=== PATIENT | female | born 1945 | race Caucasian/White ===

== ENCOUNTER → 2017-03-03 | Outpatient (CLI) | payer BC ==
[~2017-03-03] MED LIST: ASPIRIN E.C. 8181 M1 PO; CALCIUM 500500 M2 PO; CENTRUM1 TAB PO; FISH OIL CONCEN1 SGL PO
== END ==
LOC: MC.RAD 08:12
DX: Z12.31 Encounter for screening mammogram for malignant neoplasm of breast (principal); Z85.3 Personal history of malignant neoplasm of breast; Z98.890 Other specified postprocedural states

== ENCOUNTER 2017-06-09 15:10 | Emergency (ER) | payer BC ==
[~2017-06-09] VITALS: Ht 172.7 cm; Wt 88.6 kg
[2017-06-09 15:11] VITALS: BP 187/87; TEMP 97.9
[2017-06-09 16:59] LABS: COLLECTION METHOD CLEAN CATCH
[2017-06-09 17:04] LABS: MUCOUS Present /lpf; PH 5 (5-8); SQUAMOUS EPITHELIAL 0-2 /hpf; URINE APPEARANCE Clear; URINE BACTERIA None Seen /hpf; URINE BILIRUBIN Negative (NEGATIVE); URINE BLOOD Negative (NEGATIVE); URINE COLOR Yellow; URINE GLUCOSE 1+ (NEGATIVE); URINE KETONE 1+ (NEGATIVE); URINE LEUKOCYTE ESTERASE Negative (NEGATIVE); URINE PROTEIN(semi-quant) 1+ (NEGATIVE); URINE RBC 0-2 /hpf; URINE UROBILINOGEN Negative (NEGATIVE); URINE WBC 0-2 /hpf
[2017-06-09 17:18] VITALS: PULSE 80
== END 2017-06-09 17:19 | disposition home or self-care (01) ==
LOC: COL.ER 15:10
PROVIDERS: Physician Assistant
DX: S76.011A Strain of muscle, fascia and tendon of right hip, initial encounter (principal); F32.9 Major depressive disorder, single episode, unspecified; Z85.3 Personal history of malignant neoplasm of breast; Z79.82 Long term (current) use of aspirin; X50.1XXA Overexertion from prolonged static or awkward postures, initial encounter

== ENCOUNTER → 2019-05-25 | Outpatient (CLI) | payer BC | LOC: MC.RAD 04-09 13:30 | DX: Z12.31 Encounter for screening mammogram for malignant neoplasm of breast (principal) ==

== ENCOUNTER → 2020-02-14 | Outpatient (CLI) | payer BC | LOC: MC.RAD 14:30 | DX: Z12.31 Encounter for screening mammogram for malignant neoplasm of breast (principal) ==

== ENCOUNTER → 2021-01-26 | Outpatient (CLI) | payer BC | LOC: MC.RAD 09:21 | DX: Z12.31 Encounter for screening mammogram for malignant neoplasm of breast (principal) ==

== ENCOUNTER → 2021-11-15 | Outpatient (CLI) | payer BC | LOC: COL.RAD 11:56 | DX: M47.817 Spondylosis without myelopathy or radiculopathy, lumbosacral region (principal) ==

== ENCOUNTER → 2022-01-15 | Outpatient (CLI) | payer BC | LOC: MC.RAD 10:39 | DX: Z12.31 Encounter for screening mammogram for malignant neoplasm of breast (principal) ==

== ENCOUNTER → 2023-03-03 | Outpatient (CLI) | payer BC | LOC: MC.RAD 08:17 | DX: Z12.31 Encounter for screening mammogram for malignant neoplasm of breast (principal) ==

== ENCOUNTER → 2024-01-26 | Outpatient (CLI) | payer BC | LOC: CANSCHCLI → MC.RAD 08:09 | DX: Z12.31 Encounter for screening mammogram for malignant neoplasm of breast (principal); Z01.419 Encounter for gynecological examination (general) (routine) without abnormal findings ==

== ENCOUNTER 2024-03-15 11:24 | Inpatient (IN) | payer MEDICARE, BC ==
[~2024-03-15] VITALS: Ht 170.2 cm; Wt 93.8 kg
[~2024-03-15 11:24] MED LIST changes: -ASPIRIN E.C. 8181 M1 PO; +ASPIRIN E.C. 8181 MG PO
[2024-03-15 12:14] LABS: BASO # 0.1 K/mm3 (0.0-0.2); BASO % 1.1 % (0.0-2.0); EOS # 0.1 K/mm3 (0.0-0.7); EOS % 1.9 % (0.0-4.0); GRAN # 3.1 K/mm3 (1.4-6.5); GRAN % 54.8 % (42.2-75.2); HEMATOCRIT 42.2 % (37.0-47.0); HEMOGLOBIN 13.8 g/dl (12.5-16.0); LYMPH # 1.8 K/mm3 (1.2-3.4); LYMPH % 31.1 % (20.0-51.0); MEAN CELL VOLUME 96 fl (80.0-100.0); MEAN CORPUSCULAR HEMOGLOBIN 31 pg (27-31); MEAN CORPUSCULAR HGB CONC 33 g/dl (33.0-37.0); MEAN PLATELET VOLUME 10.2 fl (7.4-10.4); MONO # 0.6 K/mm3 (0.1-0.6); MONO % 10.7 % (1.7-9.3); PLATELET COUNT 266 K/mm3 (130-400); RED BLOOD COUNT 4.42 M/mm3 (4.10-5.30); REDCELL DISTRIBUTION WIDTH-CV 13.1 % (11.5-14.5)
[2024-03-15 12:26] LABS: PROTHROMBIN TIME 10.9 SECONDS (9.7-12.8)
[2024-03-15 12:28] LABS: ALBUMIN 3.5 g/dL (3.4-4.8); BILIRUBIN,TOTAL 0.5 mg/dL (0.2-1.2); CALCIUM 9.2 mg/dL (8.4-10.2); CREATININE, serum 0.78 mg/dL (0.57-1.11); POTASSIUM 3.9 mEq/L (3.5-4.5); TOTAL PROTEIN 6.4 g/dl (6.2-8.1)
[2024-03-15 12:58] LABS: COLLECTION METHOD CLEAN CATCH
[2024-03-15 13:05] LABS: URINE APPEARANCE CLEAR (CLEAR/HAZY); URINE BLOOD NEGATIVE (NEGATIVE); URINE COLOR YELLOW (YELLOW); URINE GLUCOSE NEGATIVE (NEGATIVE); URINE KETONE NEGATIVE (NEGATIVE); URINE NITRATE NEGATIVE (NEGATIVE); URINE PROTEIN(semi-quant) NEGATIVE (NEGATIVE); URINE UROBILINOGEN 0.2 E.U/dL (0.2-1.0)
[2024-03-15] MEDS ORDERED: Iohexol 300 - 100 ML VIAL IV ONE (14:33)
[2024-03-15] MEDS ORDERED: NS 100 ML IV SCH (14:34)
[2024-03-15] MEDS ORDERED: LIPITOR 10MG10 MG PO (15:08)
[2024-03-15] MEDS ORDERED: XANAX 0.5MG0.5 MG PO (15:10)
[2024-03-15] MEDS ORDERED: Acetaminophen 325 MG TAB PO PRN (15:15)
[2024-03-15] MEDS ORDERED: Ondansetron 4 MG/2 ML VIAL IV PRN (15:15)
[2024-03-15 16:00] VITALS: BP 178/77; PULSE 72; TEMP 97.5
[2024-03-15 19:23] VITALS: BP 169/74; PULSE 70; TEMP 98.1
[2024-03-15 20:25] VITALS: BP_SYST 169
[2024-03-15] MEDS ORDERED: Atorvastatin 40 MG TAB PO SCH (21:00)
[2024-03-15 23:21] VITALS: BP 150/80; PULSE 68; TEMP 98
[2024-03-16] VITALS (7 sets, daily range): BP systolic 150–175; BP diastolic 77–81; PULSE 61–72; TEMP 97.8–98.1
--- NOTE | 2024-03-16 08:05 | NUR ---
PATIENT RESTING IN BED. ALERT AND ORIENTED. SHIFT ASSESSMENT COMPLETE. UNILATERAL FACIAL DROOPING NOTED TO LEFT SIDE. HAND HEAVY CLEANER EQUAL. DENIES PAIN OR DISCOMFORT. PATIENT GOING DOWN TO MRI AT THIS TIME.
[2024-03-16] MEDS ORDERED: Gadoterate 20 ML VIAL IV ONE (08:25)
[2024-03-16 08:27] LABS: BASO # 0.1 K/mm3 (0.0-0.2); BASO % 1.1 % (0.0-2.0); EOS # 0.2 K/mm3 (0.0-0.7); EOS % 3.4 % (0.0-4.0); GRAN # 2.9 K/mm3 (1.4-6.5); GRAN % 54.6 % (42.2-75.2); HEMOGLOBIN 13.5 g/dl (12.5-16.0); LYMPH # 1.6 K/mm3 (1.2-3.4); LYMPH % 29.3 % (20.0-51.0); MEAN CELL VOLUME 93 fl (80.0-100.0); MEAN CORPUSCULAR HEMOGLOBIN 32 pg (27-31); MEAN CORPUSCULAR HGB CONC 34 g/dl (33.0-37.0); MEAN PLATELET VOLUME 10.4 fl (7.4-10.4); MONO # 0.6 K/mm3 (0.1-0.6); MONO % 11.4 % (1.7-9.3); PLATELET COUNT 252 K/mm3 (130-400); RED BLOOD COUNT 4.29 M/mm3 (4.10-5.30); REDCELL DISTRIBUTION WIDTH-CV 13.1 % (11.5-14.5)
[2024-03-16 08:44] LABS: ALBUMIN 3.2 g/dL (3.4-4.8); BILIRUBIN,TOTAL 0.6 mg/dL (0.2-1.2); CREATININE, serum 0.7 mg/dL (0.57-1.11); POTASSIUM 3.9 mEq/L (3.5-4.5); TOTAL PROTEIN 6.3 g/dl (6.2-8.1)
--- NOTE | 2024-03-16 08:50 | NUR ---
PATIENT BACK FROM MRI. ALERT AND ORIENTED.
[2024-03-16] MEDS ORDERED: Lisinopril 10 MG TAB PO SCH (09:00)
[2024-03-16] MEDS ORDERED: Clopidogrel 75 MG TAB PO SCH (09:00)
[2024-03-16 09:21] LABS: THYROID STIMULATING HORMONE 1.354 uIU/mL (0.350-4.940)
--- NOTE | 2024-03-16 09:24 | NUR ---
THIS RN RECEIVED CALL FROM RADIOLOGY DR WITH MRI RESULTS. ACUTE CORONARY INFARCT. DR JUAREZ NOTIFIED.
--- NOTE | 2024-03-16 09:32 | NUR ---
childcare worker met with pt to discuss discharge planning. She reports to live with her , Janice [phone] in [place]. She sees Dr. Glynn for PCP needs and obtains medications from [facility] with no difficulties. She confirmed to have Medicare Part A and [employer]. She is independent with ADLS and uses no DME. She does not have a DPOA-HC and is agreeable to her being NOK. SW advised PT/OT will work with her and make reccomendations such as HH vs SNF. PT/OT Pending Discharge Plan: likely home
[2024-03-16 09:42] LABS: CHOLESTEROL RISK RATIO 2.7
--- NOTE | 2024-03-16 12:57 | NUR ---
nephrology social worker notes PT/OT reccomend home. SW spoke with Speech Therapist who suggested HH vs OP ST. SW met with pt to provide Medicare.gov list of Home Health agencies that offer speech, or outpatient clinics who offer ST. She reports she will think about it and inform SW on her decision prior to discharge. Pt did not confirm when asked if she met homebound criteria for HH. Discharge Plan: home with speech services-- tbd
[2024-03-16] MEDS ORDERED: LIPITOR 40MG TA40 MG PO (14:34)
[2024-03-16] MEDS ORDERED: PLAVIX 75MG TAB75 MG PO (14:34)
[2024-03-16] MEDS ORDERED: ASPIRIN E.C. 8181 MG PO (14:35)
[2024-03-16] MEDS ORDERED: PRINIVIL10 MG PO (14:35)
--- NOTE | 2024-03-16 15:00 | NUR ---
THIS RN PROVIDED PATIENT WITH DISCHARGE EDUCATION AND INSTRUCTIONS. ALL QUESTIONS ANSWERED.
--- NOTE | 2024-03-16 15:30 | NUR ---
LAKIA noted pt has discharge orders in for HH. LAKIA called pt who reports she wanted the 's reccomendation, but is aware of her d/c. She inquired about if she thought about HH vs OP services. She notes to have done OP PT and would continue ST in the outpatient setting. She was advised to inform LAKIA which clinic she would prefer. LAKIA informed Dr. Rosado of the above and pt wanting OP ST. LAKIA notes the discharge orders have a scheduled ST appointment at [facility] on [facility]. Discharge Plan: home with OP ST
--- NOTE | 2024-03-16 15:32 | NUR ---
PATIENT ESCORTED OFF UNIT AT APPROX 1520 BY PCT. ALL BELONGINGS WITH PATIENT.
== END 2024-03-16 15:20 | disposition home or self-care (01) | DRG 66 ==
LOC: COL.ER 11:24 → MEDICAL 14:01 → COL.ER 14:01 → MEDICAL 14:58
PROVIDERS: Physician Assistant; ADMIT Hospitalist
DX: I63.9 Cerebral infarction, unspecified (principal); E78.5 Hyperlipidemia, unspecified; I10 Essential (primary) hypertension; R29.810 Facial weakness; Z85.3 Personal history of malignant neoplasm of breast; Z90.710 Acquired absence of both cervix and uterus; Z90.12 Acquired absence of left breast and nipple
CPT/HCPCS: A9575; Q9967